=== PATIENT | male | born 1940 | race Caucasian/White ===

== ENCOUNTER 2017-12-08 06:20 | Emergency (ER) | payer MEDICARE, BC ==
[2017-12-08] MEDS ORDERED: Ketorolac 60 MG/2 ML SDV IM ONE (07:26)
[2017-12-08] MEDS ORDERED: Acetaminophen/oxyCODONE 325-5 MG Tab PO ONE (07:27)
--- NOTE | 2017-12-08 07:31 | EDM.PDOC ---
ED HPI GENERAL MEDICAL PROBLEM - General Chief Complaint: Back Pain or Injury Stated Complaint: BACK/LEG PAIN Time Seen by Provider: 12/08/17 07:27 Source of Information: Reports: Patient History Limitations: Reports: No Limitations - History of Present Illness INITIAL COMMENTS - FREE TEXT/NARRATIVE: pt had been having severe pain in his legs bilateral and in the lower back. He was actually walking with crutches this am. Onset: Other ( started about 2 weeks ago. He had a fall about 3 weeks ago and he did not think he had a injury) Duration: Hour(s):, Getting Worse Location: Reports: Back, Lower Extremity, Left, Lower Extremity, Right Associated Symptoms: Reports: No Other Symptoms Treatments WHEAT GROWER: Reports: Other (see below) Other Treatments WHEAT GROWER: unknown buttock Pain Score (Numeric/FACES): 5 - Related Data Allergies Allergy/AdvReac Type Severity Reaction Status Date / Time No Known Allergies Allergy Verified 12/08/17 06:41 Home Meds: Home Meds Tamsulosin [Tamsulosin 24 Hr] 0.4 mg PO DAILY 12/08/17 [History] Past Medical History Genitourinary History: Reports: Prostate Disorder - Infectious Disease History Infectious Disease History: Reports: Chicken Pox Social & Family History - Tobacco Use Smoking Status *Q: Never Smoker Second Hand Smoke Exposure: No - Caffeine Use Caffeine Use: Reports: Coffee - Recreational Drug Use Recreational Drug Use: No ED ROS GENERAL - Review of Systems Review Of Systems: See Below Constitutional: Reports: Weakness, Other (pain in both legs. ) HEENT: Reports: No Symptoms Respiratory: Reports: No Symptoms Cardiovascular: Reports: No Symptoms Endocrine: Reports: No Symptoms GI/Abdominal: Reports: No Symptoms : Reports: No Symptoms Musculoskeletal: Reports: Other (pain in both legs and his lower back. ) Skin: Reports: No Symptoms ED EXAM,LOWER BACK PAIN/INJURY - Physical Exam Exam: See Below Text/Narrative:: Pt arrived with pain in both legs and his lower back. He feels like his legs are weak. Exam Limited By: No Limitations General Appearance: Alert, Anxious Ears: Normal TMs Nose: Normal Inspection Throat/Mouth: Normal Inspection Head: Atraumatic Neck: Normal Inspection Respiratory/Chest: No Respiratory Distress Cardiovascular: Regular Rate, Rhythm GI/Abdominal: Soft, Non-Tender (Male) Exam: Deferred Rectal (Males) Exam: Deferred Back Exam: Other (pt is tender in the lower lumbar. He has a feeling of weakness in both legs and both legs are very painful ) Extremities: Normal Inspection Neurological: Alert, Oriented x 3 Psychiatric: Normal Affect Course - Vital Signs Last Recorded V/S: Last Vital Signs Temp 36.0 C 12/08/17 11:05 Pulse 52 L 12/08/17 11:05 Resp 15 12/08/17 11:05 BP 131/82 12/08/17 11:05 Pulse Ox 93 L 12/08/17 11:05 - Orders/Labs/Meds Labs: Laboratory Tests 12/08/17 Range/Units 07:26 Urine Color Yellow Urine Appearance Slightly cloudy Urine pH 5.0 (4.5-8.0) Ur Specific [place] 1.025 (1.008-1.030) Urine Protein Negative (NEGATIVE) mg/dL Urine Glucose (UA) Normal (NEGATIVE) mg/dL Urine Ketones Negative (NEGATIVE) mg/dL Urine Occult Blood Large (NEGATIVE) Urine Nitrite Negative (NEGAITVE) Urine Bilirubin Negative (NEGATIVE) Urine Urobilinogen 1 (NORMAL) mg/dL Ur Leukocyte Esterase Negative (NEGATIVE) Urine RBC 10-20 H (0-5) Urine WBC 0-5 (0-5) Ur Epithelial Cells Few Amorphous Sediment Not seen Urine Bacteria Few Urine Mucus Not seen Meds: Medications Discontinued Medications Generic Name Dose Route Start Last Admin Trade Name Freq PRN Reason Stop Dose Admin Ketorolac Tromethamine 60 mg 12/08/17 07:26 12/08/17 07:33 Toradol IM 12/08/17 07:27 60 mg ONETIME ONE Administration Lorazepam 1 mg 12/08/17 08:39 12/08/17 09:35 Ativan PO 12/08/17 08:40 1 mg ONETIME ONE Administration Oxycodone/Acetaminophen 1 tab 12/08/17 07:27 12/08/17 07:33 Percocet 325-5 Mg PO 12/08/17 07:28 1 tab ONETIME ONE Administration - Re-Assessments/Exams Free Text/Narrative Re-Assessment/Exam: 12/08/17 11:07 Pt had lumbar spine series which did not reveal and fractures. Pt has a severe spinal stenosis at L2-3 and at L4-5. Pt has some bulging discs 12/09/17 07:55 pt had a arterial doppler which shows some narrowing but he does have flow to his feet. Departure - Departure Time of Disposition: 11:14 Disposition: Home, Self-Care 01 Condition: Fair Clinical Impression: Spinal stenosis at L4-L5 level - Discharge Information Instructions: Spinal Stenosis, [id number] Referrals: PCP,None [Primary Care Provider] - Forms: ED Department Discharge Care Plan Goals: appt in ne[place]--[facility]--Dr Mckenzie, flexeril 10mg at hs to relax muscles, norco 5/325. Use prunes or stool softner while on the norco.
[2017-12-08] MEDS ORDERED: LORazepam 1 MG Tab PO ONE (08:39)
--- NOTE | 2017-12-08 09:05 | CR ---
Lumbar Spine 2 or 3V HISTORY: pain in lower back FINDINGS: Lumbar vertebral bodies appear intact. No compression fracture or disk space narrowing is seen. Ther e is about 4 mm of anterior subluxation at L4-L5. I cannot definitively identify pars interarticulari s defects on images obtained. Spinous processes, posterior elements, and pedicles appear intact and i n satisfactory alignment. There is hypertrophic facet arthropathy lower lumbar spine. Small anterolat eral aspects are noted greatest at L2-3. Perivertebral soft tissues appear normal. IMPRESSION: Mild degenerative and hypertrophic changes. Grade 1 anterolisthesis L4-L5. No acute lumbar spine abno rmality is identified.
--- NOTE | 2017-12-08 09:08 | US ---
VL Duplex Lwr Ext Art Comp Bi HISTORY: severe pain in both lower legs which get worse FINDINGS: Normal triphasic arterial flow seen in the common femoral artery bilaterally. Biphasic flow is seen from the proximal SFA through the posterior tibial artery of each leg. No occluded segments are identified. No increased velocities are seen. Monophasic flow seen in the dorsalis pedis artery b ilaterally. IMPRESSION: No focal stenosis or occluded segments are identified in either lower extremity. Mostly b iphasic flow seen throughout most of both lower extremities as described above.
[2017-12-08 11:06] VITALS: BP 131/82
--- NOTE | 2017-12-08 11:15 | MR ---
Lumbar Spine Comp wo Cont HISTORY: severe pain and weakness in his lower back and leg Multiplanar sequences of the lumbar spine were obtained. Comparison plain radiographs are dated 2017. FINDINGS: At L4-L5 there is approximately 3 mm of anterolisthesis. Questionable pars interarticularis defect may be present on the right. Alignment is otherwise satisfactory. No compression fractures se en. There is no marrow signal abnormality. Degenerative disc desiccation is present at all levels. Th ere is mild narrowing of the intervertebral disc at L2-L3 and L4-L5. The conus terminates at the T12- L1 level. Somewhat serpiginous appearance to the nerve roots of the cauda equina suggests possible mi ld cauda equina syndrome. L1-L2: No significant disc bulge or protrusion is identified. There is mild hypertrophic facet arthro earlene bilaterally. No central or foraminal stenosis is present at this level. L2-L3: Mild diffuse posterior bulging the disc is present. There is mild hypertrophic facet arthropat hy and mild ligament of flavum hypertrophy bilaterally. These changes cause mild central spinal steno sis. Bulging disc encroaches on the inferior aspect of the exiting nerve root foramina bilaterally. L3-L4: Diffuse posterior bulging of the disc is present. No focal protrusion is identified. There is prominent hypertrophic facet arthropathy on the right. Moderately severe facet arthropathy is present on the left. There is mild ligament hypertrophy bilaterally. These changes cause severe central spin al stenosis. There is severe stenosis in the right lateral neural recess primarily due to facet arthr opathy. Mild to moderate foraminal stenosis is present on the right at this level. L4-L5: Mild diffuse posterior bulging of the disc is present. There is fairly prominent facet arthrop athy bilaterally, right greater than left. Mild ligament hypertrophy is seen. There is prominent cent ral spinal stenosis at this level. There is stenosis of the lateral neural recess bilaterally. Very m ild foraminal stenosis is present bilaterally. L5-S1: Very mild posterior bulging the disc is present. Mild facet arthropathy is present bilaterally . There is no central or foraminal stenosis at this level. IMPRESSION: 1. 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 There is possible mild grade 1 spondylolisthesis at L4-L5 with about 3 mm anterior subluxation. 2. Bulging disc and hypertrophic changes cause severe central spinal stenosis and very severe stenosi s in the right lateral neural recess at L3-L4. 3. Bulging disc and hypertrophic changes also cause severe central spinal stenosis at L4-L5. 4. There is a mildly serpiginous appearance to the nerve roots of the cauda equina suggesting possibl e mild cauda equina syndrome. 5. Very mild foraminal stenosis is present bilaterally at L4-L5. There is mild to moderate foraminal stenosis on the right at L3-L4. Findings were discussed with Dr. Suarez in the Emergency Department.
== END 2017-12-08 12:00 | disposition home or self-care (01) ==
LOC: JP.ED 06:20
DX: M48.061 Spinal stenosis, lumbar region without neurogenic claudication (principal); Z79.899 Other long term (current) drug therapy
CPT/HCPCS: 72100; 72100-26; 72148; 72148-26; 81001; 93925-26; 93925-50; 96372; 99283; 99284-25; A9270-GY; J1885

== ENCOUNTER 2018-09-07 05:04 | Emergency (ER) | payer MEDICARE, BC ==
[2018-09-07] MEDS ORDERED: HYDROmorphone 0.5 MG/0.5 ML Syringe IVPUSH ONE (05:32)
--- NOTE | 2018-09-07 05:39 | EDM.PDOC ---
<Jayy Stuot T - Last Filed: 09/07/18 09:01> ED HPI GENERAL MEDICAL PROBLEM - General Chief Complaint: Abdominal Pain Stated Complaint: BOWELS BACKED UP Time Seen by Provider: 09/07/18 05:33 - Related Data Allergies Allergy/AdvReac Type Severity Reaction Status Date / Time No Known Allergies Allergy Verified 09/07/18 05:11 Home Meds: Home Meds Tamsulosin [Tamsulosin 24 Hr] 0.4 mg PO DAILY 12/08/17 [History] EKG INTERPRETATION EKG Date: 09/07/18 Rhythm: NSR [place]: LAD-Left [place] Deviation P-Wave: Present QRS: Normal ST-T: Normal QT: Normal Comparison: NA - No Prior EKG EKG Interpretation Comments: Poor R-wave progression. T-wave inversion in lead 3. Course - Vital Signs Last Recorded V/S: Last Vital Signs Temp 36.9 C 09/07/18 05:06 Pulse 75 09/07/18 09:24 Resp 20 09/07/18 06:20 BP 132/82 09/07/18 09:24 Pulse Ox 93 L 09/07/18 06:20 - Orders/Labs/Meds Labs: Laboratory Tests 09/07/18 09/07/18 09/07/18 Range/Units 05:36 05:36 05:36 WBC 9.5 (4.5-11.0) K/uL RBC 5.04 (4.30-5.90) M/uL Hgb 14.5 (12.0-15.0) g/dL Hct 43.2 (40.0-54.0) % MCV 86 (80-98) fL MCH 29 (27-31) pg MCHC 34 (32-36) % Plt Count 203 (150-400) K/uL Neut % (Auto) 74 H (36-66) % Lymph % (Auto) 13 L (24-44) % Wright % (Auto) 12 H (2-6) % Eos % (Auto) 0 L (2-4) % Baso % (Auto) 0 (0-1) % PT (9.5-12.0) sec INR (0.80-1.20) APTT (27.0-36.0) sec D-Dimer, Quantitative (0.0-400.0) ng/mL Sodium 136 L (140-148) mmol/L Potassium 4.4 (3.6-5.2) mmol/L Chloride 100 (100-108) mmol/L Carbon Dioxide 27 (21-32) mmol/L Anion Gap 13.4 (5.0-14.0) mmol/L BUN 10 (7-18) mg/dL Creatinine 0.8 (0.8-1.3) mg/dL Est Cr Clr Drug Dosing 78.58 mL/min Estimated GFR (MDRD) > 60 (>60) Glucose 117 H (74-106) mg/dL Calcium 9.1 (8.5-10.1) mg/dL Total Bilirubin 1.2 H (0.2-1.0) mg/dL AST 19 (15-37) U/L ALT 30 (12-78) U/L Alkaline Phosphatase 86 (46-116) U/L Troponin I (0.000-0.056) ng/mL C-Reactive Protein 9.90 H (0.0-0.3) mg/dL Total Protein 7.7 (6.4-8.2) g/dL Albumin 3.4 (3.4-5.0) g/dL Globulin 4.3 H (2.3-3.5) g/dL Albumin/Globulin Ratio 0.8 L (1.2-2.2) Urine Color Urine Appearance Urine pH (4.5-8.0) Ur Specific [place] (1.008-1.030) Urine Protein (NEGATIVE) mg/dL Urine Glucose (UA) (NEGATIVE) mg/dL Urine Ketones (NEGATIVE) mg/dL Urine Occult Blood (NEGATIVE) Urine Nitrite (NEGAITVE) Urine Bilirubin (NEGATIVE) Urine Urobilinogen (NORMAL) mg/dL Ur Leukocyte Esterase (NEGATIVE) Urine RBC (0-5) Urine WBC (0-5) Ur Epithelial Cells Amorphous Sediment Urine Bacteria Urine Mucus 09/07/18 09/07/18 09/07/18 Range/Units 05:36 05:36 06:07 WBC (4.5-11.0) K/uL RBC (4.30-5.90) M/uL Hgb (12.0-15.0) g/dL Hct (40.0-54.0) % MCV (80-98) fL MCH (27-31) pg MCHC (32-36) % Plt Count (150-400) K/uL Neut % (Auto) (36-66) % Lymph % (Auto) (24-44) % Wright % (Auto) (2-6) % Eos % (Auto) (2-4) % Baso % (Auto) (0-1) % PT 11.1 (9.5-12.0) sec INR 1.01 (0.80-1.20) APTT 29.7 (27.0-36.0) sec D-Dimer, Quantitative 3320 H (0.0-400.0) ng/mL Sodium (140-148) mmol/L Potassium (3.6-5.2) mmol/L Chloride (100-108) mmol/L Carbon Dioxide (21-32) mmol/L Anion Gap (5.0-14.0) mmol/L BUN (7-18) mg/dL Creatinine (0.8-1.3) mg/dL Est Cr Clr Drug Dosing mL/min Estimated GFR (MDRD) (>60) Glucose (74-106) mg/dL Calcium (8.5-10.1) mg/dL Total Bilirubin (0.2-1.0) mg/dL AST (15-37) U/L ALT (12-78) U/L Alkaline Phosphatase (46-116) U/L Troponin I < 0.017 (0.000-0.056) ng/mL C-Reactive Protein (0.0-0.3) mg/dL Total Protein (6.4-8.2) g/dL Albumin (3.4-5.0) g/dL Globulin (2.3-3.5) g/dL Albumin/Globulin Ratio (1.2-2.2) Urine Color Urine Appearance Urine pH (4.5-8.0) Ur Specific [place] (1.008-1.030) Urine Protein (NEGATIVE) mg/dL Urine Glucose (UA) (NEGATIVE) mg/dL Urine Ketones (NEGATIVE) mg/dL Urine Occult Blood (NEGATIVE) Urine Nitrite (NEGAITVE) Urine Bilirubin (NEGATIVE) Urine Urobilinogen (NORMAL) mg/dL Ur Leukocyte Esterase (NEGATIVE) Urine RBC (0-5) Urine WBC (0-5) Ur Epithelial Cells Amorphous Sediment Urine Bacteria Urine Mucus 06/13/19 Range/Units 07:56 WBC (4.5-11.0) K/uL RBC (4.30-5.90) M/uL Hgb (12.0-15.0) g/dL Hct (40.0-54.0) % MCV (80-98) fL MCH (27-31) pg MCHC (32-36) % Plt Count (150-400) K/uL Neut % (Auto) (36-66) % Lymph % (Auto) (24-44) % Wright % (Auto) (2-6) % Eos % (Auto) (2-4) % Baso % (Auto) (0-1) % PT (9.5-12.0) sec INR (0.80-1.20) APTT (27.0-36.0) sec D-Dimer, Quantitative (0.0-400.0) ng/mL Sodium (140-148) mmol/L Potassium (3.6-5.2) mmol/L Chloride (100-108) mmol/L Carbon Dioxide (21-32) mmol/L Anion Gap (5.0-14.0) mmol/L BUN (7-18) mg/dL Creatinine (0.8-1.3) mg/dL Est Cr Clr Drug Dosing mL/min Estimated GFR (MDRD) (>60) Glucose (74-106) mg/dL Calcium (8.5-10.1) mg/dL Total Bilirubin (0.2-1.0) mg/dL AST (15-37) U/L ALT (12-78) U/L Alkaline Phosphatase (46-116) U/L Troponin I (0.000-0.056) ng/mL C-Reactive Protein (0.0-0.3) mg/dL Total Protein (6.4-8.2) g/dL Albumin (3.4-5.0) g/dL Globulin (2.3-3.5) g/dL Albumin/Globulin Ratio (1.2-2.2) Urine Color Yellow Urine Appearance Clear Urine pH 7.0 (4.5-8.0) Ur Specific [place] 1.005 L (1.008-1.030) Urine Protein Negative (NEGATIVE) mg/dL Urine Glucose (UA) Normal (NEGATIVE) mg/dL Urine Ketones 15 H (NEGATIVE) mg/dL Urine Occult Blood Negative (NEGATIVE) Urine Nitrite Negative (NEGAITVE) Urine Bilirubin Negative (NEGATIVE) Urine Urobilinogen Normal (NORMAL) mg/dL Ur Leukocyte Esterase Negative (NEGATIVE) Urine RBC 0-5 (0-5) Urine WBC Not seen (0-5) Ur Epithelial Cells Not seen Amorphous Sediment Rare Urine Bacteria Not seen Urine Mucus Not seen Meds: Medications Discontinued Medications Generic Name Dose Route Start Last Admin Trade Name Freq PRN Reason Stop Dose Admin Hydromorphone HCl 0.5 mg 09/07/18 05:32 09/07/18 05:40 Dilaudid IVPUSH 09/07/18 05:33 0.5 mg ONETIME ONE Administration Sodium Chloride 1,000 mls @ 150 mls/hr 09/07/18 05:45 09/07/18 05:40 Normal Saline IV 150 mls/hr ASDIRECTED BUDDY Administration Sodium Chloride 1,000 mls @ 999 mls/hr 09/07/18 06:15 09/07/18 06:13 Normal Saline IV 999 mls/hr ASDIRECTED BUDDY Administration Sodium Chloride 100 mls @ 4 mls/sec 09/07/18 06:16 09/07/18 06:33 Normal Saline IV 09/07/18 06:17 4 mls/sec ASDIRECTED STA Administration Heparin Sodium/Dextrose 25,000 units in 500 mls @ 20 mls/hr 09/07/18 08:15 08:51 Heparin 25,000 Units In D5w 500 Ml IV 1,300 units/hr TITRATE BUDDY 26 mls/hr Administration Protocol 1,000 UNITS/HR Iopamidol 100 ml 09/07/18 06:16 09/07/18 06:33 Isovue-370 (76%) IV 09/07/18 06:17 100 ml . DIRECTED STA Administration - Re-Assessments/Exams Free Text/Narrative Re-Assessment/Exam: Assumed care of patient from Dr. Suarez [place] [address] imaging has been completed but reports are pending. Verbal report of CT images at 0733 shows significant bilateral pulmonary emboli with post-embolic infarction changes on right side. There is also thrombus in the IVC. 09/07/18 07:35 09/07/18 08:14 The patient was seen by Dr. Juan David Harper. Dr. Harper will be gone through the weekend and reviewed the patient's case with Dr. Allison, the hospitalist client relationship executive. Heparin will be initiated per venous thromboembolism protocol. 09/07/18 09:[address] findings with Dr. Allison. Based on the extensive clot found on imaging including that in the IVC, he feels the patient should be transferred to a facility with interventional radiology capability to place of filter or possibly attempt clot lysis. The patient is are discussing where they would like to be transferred. 09/07/18 09:38 Patient and his reviewed the situation with an acquaintance of theirs who is a retired physician. Based on discussions among the group, they prefer to be transferred to [facility] in [place]. I discussed the patient's case with [facility] staff. His radiology images will be transmitted from here to there are reviewed by the staff. 09/07/18 10:[address] [facility] hospitalist, Dr. Maldonado, and interventional radiology, Dr. Chowdary, staff. They accept the patient in transfer by are not sure what specific intervention they will be able to do until the patient can be evaluated in person. He'll be transported by ALS ambulance. Departure - Departure Time of Disposition: 07:48 Disposition: DC/Tfer to Acute Hospital 02 Condition: Serious Clinical Impression: Pulmonary embolism and infarction, Thrombus - Discharge Information *PRESCRIPTION DRUG MONITORING PROGRAM REVIEWED*: Not Applicable *COPY OF PRESCRIPTION DRUG MONITORING REPORT IN PATIENT RUMA: Not Applicable Referrals: PCP,None [Primary Care Provider] - Forms: Interfacility Transfer EMTALA - Problem List Review Problem List Initiated/Reviewed/Updated: Yes <Madelyn Suarez - Last Filed: 09/07/18 18:55> ED HPI GENERAL MEDICAL PROBLEM - General Source of Information: Reports: Patient History Limitations: Reports: No Limitations - History of Present Illness INITIAL COMMENTS - FREE TEXT/NARRATIVE: pt is very uncomfortable in his rt chest. He has a lower o2 sat. He can,t lie flat because he is so uncomfortable. He hurts alot when he takes a deep breath. Onset: Gradual, Other ( this is definitely worse tonight but this has been going on for 2 days. He has not been having good bms. ) Duration: Hour(s): Location: Reports: Chest, Abdomen Associated Symptoms: Reports: Chest Pain, Shortness of Breath Abdomen Pain Score (Numeric/FACES): 7 Past Medical History HEENT History: Reports: Impaired Vision Cardiovascular History: Reports: None Respiratory History: Reports: None Gastrointestinal History: Reports: None Genitourinary History: Reports: Prostate Disorder Musculoskeletal History: Reports: Other (See Below) Other Musculoskeletal History: left knee pain Neurological History: Reports: None Psychiatric History: Reports: None Endocrine/Metabolic History: Reports: None Hematologic History: Reports: None Immunologic History: Reports: None Oncologic (Cancer) History: Reports: None Dermatologic History: Reports: None - Infectious Disease History Infectious Disease History: Reports: Chicken Pox - Past Surgical History HEENT Surgical History: Reports: None Male Surgical History: Reports: None Musculoskeletal Surgical History: Reports: None Social & Family History - Family History Family Medical History: Noncontributory - Tobacco Use Smoking Status *Q: Never Smoker - Caffeine Use Caffeine Use: Reports: None - Recreational Drug Use Recreational Drug Use: No ED ROS GENERAL - Review of Systems Review Of Systems: See Below Constitutional: Reports: No Symptoms HEENT: Reports: No Symptoms Respiratory: Reports: Shortness of Breath, Pleuritic Chest Pain Cardiovascular: Reports: Chest Pain Endocrine: Reports: No Symptoms GI/Abdominal: Reports: Other ( some pain in the upper abdoman by the rt diaphram ) : Reports: No Symptoms Musculoskeletal: Reports: No Symptoms Skin: Reports: No Symptoms ED EXAM, GI/ABD - Physical Exam Exam: See Below Text/Narrative:: pt has talked to Dr Harper who thought he was very constipated. He did do a US of the abdoman which was neg. He is feeling very sob and is having pain with deep breathing. Exam Limited By: No Limitations General Appearance: Alert, Moderate Distress Ears: Normal TMs Nose: Normal Inspection Throat/Mouth: Normal Inspection Head: Atraumatic Neck: Normal Inspection Respiratory/Chest: Respiratory Distress, Splinting Cardiovascular: Regular Rate, Rhythm GI/Abdominal Exam: Soft, Other (mild rt upper abdomanal tenderness) (Male) Exam: Deferred Rectal (Males) Exam: Deferred Back Exam: Normal Inspection Extremities: Normal Inspection Neurological: Alert, Oriented, Normal Cognition Psychiatric: Anxious Course - Orders/Labs/Meds Labs: Laboratory Tests 09/07/18 09/07/18 09/07/18 Range/Units 05:36 05:36 05:36 WBC 9.5 (4.5-11.0) K/uL RBC 5.04 (4.30-5.90) M/uL Hgb 14.5 (12.0-15.0) g/dL Hct 43.2 (40.0-54.0) % MCV 86 (80-98) fL MCH 29 (27-31) pg MCHC 34 (32-36) % Plt Count 203 (150-400) K/uL Neut % (Auto) 74 H (36-66) % Lymph % (Auto) 13 L (24-44) % Wright % (Auto) 12 H (2-6) % Eos % (Auto) 0 L (2-4) % Baso % (Auto) 0 (0-1) % PT (9.5-12.0) sec INR (0.80-1.20) APTT (27.0-36.0) sec D-Dimer, Quantitative (0.0-400.0) ng/mL Sodium 136 L (140-148) mmol/L Potassium 4.4 (3.6-5.2) mmol/L Chloride 100 (100-108) mmol/L Carbon Dioxide 27 (21-32) mmol/L Anion Gap 13.4 (5.0-14.0) mmol/L BUN 10 (7-18) mg/dL Creatinine 0.8 (0.8-1.3) mg/dL Est Cr Clr Drug Dosing 78.58 mL/min Estimated GFR (MDRD) > 60 (>60) Glucose 117 H (74-106) mg/dL Calcium 9.1 (8.5-10.1) mg/dL Total Bilirubin 1.2 H (0.2-1.0) mg/dL AST 19 (15-37) U/L ALT 30 (12-78) U/L Alkaline Phosphatase 86 (46-116) U/L Troponin I (0.000-0.056) ng/mL C-Reactive Protein 9.90 H (0.0-0.3) mg/dL Total Protein 7.7 (6.4-8.2) g/dL Albumin 3.4 (3.4-5.0) g/dL Globulin 4.3 H (2.3-3.5) g/dL Albumin/Globulin Ratio 0.8 L (1.2-2.2) Urine Color Urine Appearance Urine pH (4.5-8.0) Ur Specific [place] (1.008-1.030) Urine Protein (NEGATIVE) mg/dL Urine Glucose (UA) (NEGATIVE) mg/dL Urine Ketones (NEGATIVE) mg/dL Urine Occult Blood (NEGATIVE) Urine Nitrite (NEGAITVE) Urine Bilirubin (NEGATIVE) Urine Urobilinogen (NORMAL) mg/dL Ur Leukocyte Esterase (NEGATIVE) Urine RBC (0-5) Urine WBC (0-5) Ur Epithelial Cells Amorphous Sediment Urine Bacteria Urine Mucus 09/07/18 09/07/18 09/07/18 Range/Units 05:36 05:36 06:07 WBC (4.5-11.0) K/uL RBC (4.30-5.90) M/uL Hgb (12.0-15.0) g/dL Hct (40.0-54.0) % MCV (80-98) fL MCH (27-31) pg MCHC (32-36) % Plt Count (150-400) K/uL Neut % (Auto) (36-66) % Lymph % (Auto) (24-44) % [place] % (Auto) (2-6) % Eos % (Auto) (2-4) % Baso % (Auto) (0-1) % PT 11.1 (9.5-12.0) sec INR 1.01 (0.80-1.20) APTT 29.7 (27.0-36.0) sec D-Dimer, Quantitative 3320 H (0.0-400.0) ng/mL Sodium (140-148) mmol/L Potassium (3.6-5.2) mmol/L Chloride (100-108) mmol/L Carbon Dioxide (21-32) mmol/L Anion Gap (5.0-14.0) mmol/L BUN (7-18) mg/dL Creatinine (0.8-1.3) mg/dL Est Cr Clr Drug Dosing mL/min Estimated GFR (MDRD) (>60) Glucose (74-106) mg/dL Calcium (8.5-10.1) mg/dL Total Bilirubin (0.2-1.0) mg/dL AST (15-37) U/L ALT (12-78) U/L Alkaline Phosphatase (46-116) U/L Troponin I < 0.017 (0.000-0.056) ng/mL C-Reactive Protein (0.0-0.3) mg/dL Total Protein (6.4-8.2) g/dL Albumin (3.4-5.0) g/dL Globulin (2.3-3.5) g/dL Albumin/Globulin Ratio (1.2-2.2) Urine Color Urine Appearance Urine pH (4.5-8.0) Ur Specific [place] (1.008-1.030) Urine Protein (NEGATIVE) mg/dL Urine Glucose (UA) (NEGATIVE) mg/dL Urine Ketones (NEGATIVE) mg/dL Urine Occult Blood (NEGATIVE) Urine Nitrite (NEGAITVE) Urine Bilirubin (NEGATIVE) Urine Urobilinogen (NORMAL) mg/dL Ur Leukocyte Esterase (NEGATIVE) Urine RBC (0-5) Urine WBC (0-5) Ur Epithelial Cells Amorphous Sediment Urine Bacteria Urine Mucus 09/07/18 Range/Units 07:56 WBC (4.5-11.0) K/uL RBC (4.30-5.90) M/uL Hgb (12.0-15.0) g/dL Hct (40.0-54.0) % MCV (80-98) fL MCH (27-31) pg MCHC (32-36) % Plt Count (150-400) K/uL Neut % (Auto) (36-66) % Lymph % (Auto) (24-44) % Wright % (Auto) (2-6) % Eos % (Auto) (2-4) % Baso % (Auto) (0-1) % PT (9.5-12.0) sec INR (0.80-1.20) APTT (27.0-36.0) sec D-Dimer, Quantitative (0.0-400.0) ng/mL Sodium (140-148) mmol/L Potassium (3.6-5.2) mmol/L Chloride (100-108) mmol/L Carbon Dioxide (21-32) mmol/L Anion Gap (5.0-14.0) mmol/L BUN (7-18) mg/dL Creatinine (0.8-1.3) mg/dL Est Cr Clr Drug Dosing mL/min Estimated GFR (MDRD) (>60) Glucose (74-106) mg/dL Calcium (8.5-10.1) mg/dL Total Bilirubin (0.2-1.0) mg/dL AST (15-37) U/L ALT (12-78) U/L Alkaline Phosphatase (46-116) U/L Troponin I (0.000-0.056) ng/mL C-Reactive Protein (0.0-0.3) mg/dL Total Protein (6.4-8.2) g/dL Albumin (3.4-5.0) g/dL Globulin (2.3-3.5) g/dL Albumin/Globulin Ratio (1.2-2.2) Urine Color Yellow Urine Appearance Clear Urine pH 7.0 (4.5-8.0) Ur Specific [place] 1.005 L (1.008-1.030) Urine Protein Negative (NEGATIVE) mg/dL Urine Glucose (UA) Normal (NEGATIVE) mg/dL Urine Ketones 15 H (NEGATIVE) mg/dL Urine Occult Blood Negative (NEGATIVE) Urine Nitrite Negative (NEGAITVE) Urine Bilirubin Negative (NEGATIVE) Urine Urobilinogen Normal (NORMAL) mg/dL Ur Leukocyte Esterase Negative (NEGATIVE) Urine RBC 0-5 (0-5) Urine WBC Not seen (0-5) Ur Epithelial Cells Not seen Amorphous Sediment Rare Urine Bacteria Not seen Urine Mucus Not seen - Re-Assessments/Exams Free Text/Narrative Re-Assessment/Exam: 09/07/18 06:09 pt has a very definite infiltrate in the rt lower lobe. He has a very high ddimer. He remains low with O@ sats and hurting alot with deep breathing. Pt had a cat scan of the abdomanpelvis which revealed a large thrombus in the inferior vena cava and in the left iliac vessel. He had a angio of his chest which showed multiple pulmonary emboli with infarction in the lower rt lung. 09/07/18 18:53
[2018-09-07] MEDS ORDERED: Sodium Chloride 0.9% 1,000 ML IV SCH ×2 (05:45→06:15)
[2018-09-07] MEDS ORDERED: Sodium Chloride 0.9% 100 ML IV STA (06:16)
[2018-09-07] MEDS ORDERED: Iopamidol 755 Mg/ML 100 ML Bottle IV STA (06:16)
--- NOTE | 2018-09-07 06:16 | CRLCR ---
INDICATION: Right-sided chest pain TECHNIQUE: Chest 1 view COMPARISON: None FINDINGS: Cardiovascular and mediastinum: There is cardiomegaly. Normal pulmonary vasculature. Lungs and pleural spaces: Right basilar atelectasis or infiltrate is present. Remainder of the lungs and pleural spaces are clear. No pneumothorax. Bones and soft tissues: No significant findings. IMPRESSION: Right lower lobe pneumonia and/or atelectasis. Dictated by Duglas Reeves MD @ 09/07/2018 6:14:56 AM Dictated by: Duglas Reeves MD @ 09/07/2018 06:15:01 (Electronically Signed)
--- NOTE | 2018-09-07 07:38 | CRLCT ---
INDICATION: Right-sided chest and abdomen pain. TECHNIQUE: CT chest PE was acquired with 100 cc Isovue 370 IV contrast. COMPARISON: None. FINDINGS: Heart and vasculature: There is a significant burden of multiple large bilateral pulmonary emboli. No evidence of right heart strain. There is moderate cardiomegaly.Great vessels are normal in caliber. Coronary artery atherosclerosis is present. Lungs and pleural: Consolidation is present in the right lower lobe and to a lesser extent right middle lobe. Trace right pleural effusion. Lymph nodes/mediastinum: No mediastinal, hilar, or axillary adenopathy. Thyroid gland is normal. Chest wall: No masses. Upper abdomen: Normal. Bones: Unremarkable for age. IMPRESSION: Significant burden of large bilateral pulmonary emboli with evidence of post embolic infarct and/or atelectasis in the right lower lobe and to a lesser extent right middle lobe. No sign of right heart strain. Results discussed with Dr. Stout at 0735 hours. Dictated by Duglas Reeves MD @ 09/07/2018 7:36:04 AM Please note that all CT scans at this facility use dose modulation, iterative reconstruction, and/or weight-based dosing when appropriate to reduce radiation dose to as low as reasonably achievable. Dictated by: Duglas Reeves MD @ 09/07/2018 07:36:08 (Electronically Signed)
--- NOTE | 2018-09-07 07:45 | CRLCT ---
INDICATION: Right-sided chest and abdomen pain. TECHNIQUE: CT abdomen and pelvis acquired with 100 cc Isovue 370 IV contrast. COMPARISON: None. FINDINGS: Lower chest: Findings in the chest are detailed on the separate CT chest report. Pulmonary emboli are present. Liver: Unremarkable. Normal in size and attenuation. No masses. Gallbladder and bile ducts: Unremarkable. No stones or inflammation. No biliary dilatation. Pancreas: Unremarkable. No mass or inflammation. Spleen: Unremarkable. Normal in size. No masses. Adrenal glands: Unremarkable. No nodules. Kidneys: Unremarkable. No masses, stones, or hydronephrosis. GI tract: Unremarkable. Normal in caliber. No sign of mass or inflammation. Normal appendix. Vasculature: A large thrombus is present in the inferior vena cava and left common iliac vein. Mesenteric arteries are patent. Lymph nodes: No lymphadenopathy. Omentum/Peritoneum/Abdominal Wall: Unremarkable. No sign of mass or infiltration. No free air or significant free fluid. Pelvis: Marked enlargement of the prostate gland. Bones: Unremarkable for age. IMPRESSION: 1. Large thrombus is in the IVC and left common iliac vein. 2. Marked prostate gland enlargement. 3. No other acute or significant finding. Please note that all CT scans at this facility use dose modulation, iterative reconstruction, and/or weight-based dosing when appropriate to reduce radiation dose to as low as reasonably achievable. Dictated by Duglas Reeves MD @ Sep 07 2018 7:36AM Signed by Dr. Duglas Reeves @ Sep 07 2018 7:43AM
[2018-09-07] MEDS ORDERED: Heparin Sodium/D5W 25,000 UNITS/500 ML BAG IV SCH (08:15)
--- NOTE | 2018-09-07 09:18 | PCM.SN ---
- Free Text/Narrative Note: Mr. Henderson is a 78-year-old gentleman who I've been asked to see and admit by Dr. Harper through the emergency department. He has had pleuritic pain in the right chest and shortness of breath. Symptoms worsened during the survey engineer hours and he presented to the emergency department for further evaluation. CT scan of the chest shows evidence of bilateral pulmonary emboli and pulmonary infarction of the right lung. In addition there is clot noted in the inferior vena cava. Because of the inferior vena cava thrombus I believe that he should be transferred to a tertiary care center for further subspecialty evaluation and management. I discussed this with Dr. Stout who will arrange transfer.
[2018-09-07 09:43] VITALS: BP 132/82
== END 2018-09-07 12:35 ==
LOC: JP.ED 05:04
DX: I26.99 Other pulmonary embolism without acute cor pulmonale (principal); I82.220 Acute embolism and thrombosis of inferior vena cava; I82.422 Acute embolism and thrombosis of left iliac vein
CPT/HCPCS: 36415; 71045; 71275; 74177; 80053; 81001; 84484; 85025; 85379; 85610; 85730; 86140; 96361; 96365; 96366; 96375; 99285; J1170; J1644; J7030; Q9967

== ENCOUNTER 2019-06-15 08:50 | Day surgery (SDC) | payer MEDICARE, BC ==
[2019-06-15] MEDS ORDERED: Dextrose 5%-Lactated Ringers 1,000 ML IV SCH (09:15)
[2019-06-15] MEDS ORDERED: Propofol 200 MG/20 ML SDV ONE ×2 (09:28→11:13)
[2019-06-15] MEDS ORDERED: fentaNYL 100 MCG/2 ML SDV ONE (09:44)
[2019-06-15] MEDS ORDERED: Midazolam 1 MG/ML 2 ML SDV ONE (10:33)
[2019-06-15 13:32] VITALS: BP 128/79; PULSE 56
--- NOTE | 2019-06-18 13:15 | OR ---
DATE OF PROCEDURE: 06/15/2019 SURGEON: Zachary Rutherford MD PREOPERATIVE DIAGNOSIS: History of colon polyps. POSTOPERATIVE DIAGNOSIS: Single polyp in mid-sigmoid colon. OPERATIVE PROCEDURE: Flexible colonoscopy with polypectomy by snare technique. ANESTHESIA: IV sedation. INDICATION FOR PROCEDURE: This is a 79-year-old presenting for followup colonoscopy. The plan is to proceed with a colonoscopy with biopsies and/or polypectomy as indicated. Potential risks of the procedure including bleeding and perforation were discussed, and the patient wishes to proceed. DETAILS OF PROCEDURE: The patient was taken to the operating room and placed in a left lateral decubitus position. IV sedation was administered, after which the initial digital rectal examination was unremarkable. The scope was then passed to the level of the cecum. The prep was fairly good, but there was some liquid stool present, which might have obscured small areas of polypoid disease. The patient was noted to have no diverticula or areas of colitis. There was a single polyp noted 20 cm from the dentate line. This was removed by snare technique in 2 portions. Good hemostasis was noted. The procedure then concluded. The patient was taken to the recovery room in satisfactory condition. Assuming this is an adenomatous polyp, the next colonoscopy should be scheduled in 2 years. Zachary Rutherford MD /[id number]
== END 2019-06-15 13:15 | disposition home or self-care (01) ==
LOC: JP.SDS 08:50
PROVIDERS: ATTEND Surgery
DX: Z12.11 Encounter for screening for malignant neoplasm of colon (principal); D12.6 Benign neoplasm of colon, unspecified; Z86.010 Personal history of colon polyps
CPT/HCPCS: 45385; J2250; J2704; J3010; J7121; 88305

== ENCOUNTER 2020-04-19 15:31 | Emergency (ER) | payer MEDICARE, BC ==
[2020-04-19 16:41] VITALS: BP 144/87; PULSE 61
--- NOTE | 2020-04-19 16:46 | EDM.PDOC ---
ED HPI GENERAL MEDICAL PROBLEM - General Chief Complaint: General Stated Complaint: FELL ON ICE Time Seen by Provider: 04/19/20 16:15 Source of Information: Reports: Patient, Old Records, RN History Limitations: Reports: No Limitations - History of Present Illness INITIAL COMMENTS - FREE TEXT/NARRATIVE: 80-year-old pan was on the barn when he slipped on some ice and fell vikas kwards hitting his head. He was wearing a insulated hat. He apparently lost consciousness for a brief period of time and was assisted up by his son. The son and the noted that he seemed to have lack of memory of the event and memory about other recent things. This improved with time he continues to improve however according to the to the point where is now normal during his exam in the emergency department. 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 He continues to farm and function normally. He has no specific complaints during my exam. Onset: Today - Related Data Allergies Allergy/AdvReac Type Severity Reaction Status Date / Time No Known Allergies Allergy Verified 04/19/20 15:44 Home Meds: Home Meds Tamsulosin [Tamsulosin 24 Hr] 0.4 mg PO DAILY 12/08/17 [History] Apixaban [Eliquis] 5 mg PO BID 06/12/19 [History] Oxybutynin 5 mg PO DAILY 06/12/19 [History] Past Medical History HEENT History: Reports: Impaired Vision Cardiovascular History: Reports: Heart Murmur Respiratory History: Reports: PE Gastrointestinal History: Reports: Colon Polyp Genitourinary History: Reports: Prostate Disorder Musculoskeletal History: Reports: Fracture Other Musculoskeletal History: left knee pain Neurological History: Reports: None Psychiatric History: Reports: None Endocrine/Metabolic History: Reports: None Hematologic History: Reports: Anticoagulation Therapy Immunologic History: Reports: None Oncologic (Cancer) History: Reports: None Dermatologic History: Reports: None - Infectious Disease History Infectious Disease History: Reports: Chicken Pox, Measles, Mumps - Past Surgical History Head Surgeries/Procedures: Reports: None HEENT Surgical History: Reports: Tonsillectomy Cardiovascular Surgical History: Reports: None Respiratory Surgical History: Reports: None GI Surgical History: Reports: Colonoscopy Male Surgical History: Reports: None Endocrine Surgical History: Reports: None Neurological Surgical History: Reports: Lumbar Spine Musculoskeletal Surgical History: Reports: None Dermatological Surgical History: Reports: None Social & Family History - Family History Family Medical History: No Pertinent Family History - Tobacco Use Tobacco Use Status *Q: Never Tobacco User Second Hand Smoke Exposure: No - Caffeine Use Caffeine Use: Reports: Coffee - Recreational Drug Use Recreational Drug Use: No ED ROS GENERAL - Review of Systems Review Of Systems: See Below Constitutional: Reports: No Symptoms HEENT: Reports: No Symptoms (10 systems are reviewed and there is no system complaints in any of the 10 at the moment.) ED EXAM, GENERAL - Physical Exam Exam: See Below Free Text/Narrative:: Alert cooperative 80-year-old male lying on the gurney does not appear to be in any distress responding to my questions and appearing normal during the exam. HEENT shows eyes ears nose and throat appear to be normal. There is no tenderness or evidence of injury about the scalp or skull on palpation. Tongue is midline no facial droop. Feel the vision is entirely normal Neck is supple normal range of motion and nontender Chest is clear with a regular rate and rhythm with no abnormal sounds no pain on compression Abdomen is soft active bowel sounds and nontender without mass Pelvis and extremities are normal with normal range of motion and no deformities back exam is negative Skin exam is normal without rash or edema Neurologic is physiologic DTR and tone he moves about the room and can walk about and follow commands without a problem. [id number] is negative. He can stand to walk on his toes. Exam Limited By: No Limitations General Appearance: Alert, WD/WN, No Apparent Distress Course - Vital Signs Text/Narrative:: Because of the Eliquis and the altered mental status for period of time now improved, CAT scan of the head will be performed. 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 He is discharged to follow his physician return here as necessary try to avoid falling down Last Recorded V/S: Last Vital Signs Temp 35.6 C L 04/19/20 15:45 Pulse 60 04/19/20 15:45 Resp 16 04/19/20 15:45 BP 152/79 H 04/19/20 15:45 Pulse Ox 94 L 04/19/20 15:45 - Orders/Labs/Meds Orders: Active Orders 24 hr Category Date Time Status Head wo Cont [CT] Stat Exams 04/19/20 16:26 Ordered Departure - Departure Time of Disposition: 17:30 Disposition: Home, Self-Care 01 Condition: Good Clinical Impression: Head injury due to trauma - Discharge Information Referrals: Dima Camilo MD [Primary Care Provider] - Sepsis Event Note (ED) - Evaluation Sepsis Screening Result: No Definite Risk - Focused Exam Vital Signs: Vital Signs Temp Pulse Resp BP Pulse Ox 04/19/20 15:45 35.6 C L 60 16 152/79 H 94 L 04/19/20 15:43 35.6 C L 60 16 152/79 H 94 L - My Orders Last 24 Hours: My Active Orders 04/19/20 16:26 Head wo Cont [CT] Stat - Assessment/Plan Last 24 Hours: My Active Orders 04/19/20 16:26 Head wo Cont [CT] Stat
--- NOTE | 2020-04-19 17:03 | CRLCT ---
indication: Fall. On Eliquis. Technique: Multiple contiguous axial images were obtained from the skullbase to vertex without intravenous contrast enhancement. Please note that all CT scans at this facility use dose modulation, iterative reconstruction, and/or weight-based dosing when appropriate to reduce radiation dose to as low as reasonably achievable. Comparison: None Findings: The ventricles are enlarged consistent with the sizes sulci. The basal cisterns are widely patent. No intra-axial or extra-axial hemorrhage is identified. No mass, mass effect or midline shift is seen. The bony calvarium is intact. The visualized paranasal sinuses and mastoid air cells are clear. Impression: No acute intracranial process. Mild diffuse volume loss. Please note that all CT scans at this facility use dose modulation, iterative reconstruction, and/or weight-based dosing when appropriate to reduce radiation dose to as low as reasonably achievable. Dictated by Barbie Loya MD @ Apr 19 2020 4:56PM Signed by Dr. Barbie Loya @ Apr 19 2020 5:02PM
== END 2020-04-19 17:37 | disposition home or self-care (01) ==
LOC: JP.ED 15:31
DX: S09.90XA Unspecified injury of head, initial encounter (principal); N42.9 Disorder of prostate, unspecified; Z86.711 Personal history of pulmonary embolism; Z79.01 Long term (current) use of anticoagulants; Z79.899 Other long term (current) drug therapy; W00.0XXA Fall on same level due to ice and snow, initial encounter
CPT/HCPCS: 70450; 99283; 99283-25

== ENCOUNTER 2021-06-22 06:39 | Day surgery (SDC) | payer MEDICARE, BC ==
[2021-06-22] MEDS ORDERED: fentaNYL 100 MCG/2 ML SDV ONE (07:12)
[2021-06-22] MEDS ORDERED: Propofol 200 MG/20 ML SDV ONE ×2 (07:12→09:34)
[2021-06-22] MEDS ORDERED: Dextrose 5%-Lactated Ringers 1,000 ML IV SCH (08:00)
[2021-06-22 10:47] VITALS: BP 129/86; PULSE 60
== END 2021-06-22 10:52 | disposition home or self-care (01) ==
LOC: JP.SDS 06:39
PROVIDERS: ATTEND Surgery
DX: Z12.11 Encounter for screening for malignant neoplasm of colon (principal); K64.9 Unspecified hemorrhoids; Z98.890 Other specified postprocedural states; Z85.038 Personal history of other malignant neoplasm of large intestine; Z86.711 Personal history of pulmonary embolism; Z87.891 Personal history of nicotine dependence
CPT/HCPCS: J2704; J3010; J7121

== ENCOUNTER 2022-07-11 05:15 | Emergency (ER) | payer MEDICARE, BC ==
[2022-07-11 05:31] VITALS: BP 94/62; PULSE 66
[2022-07-11] MEDS ORDERED: Alum Hydrox/Mag Hydrox/Simeth 15 ML, Lidocaine 2% 15 ML PO ONE ×2 (06:40)
[2022-07-11 06:42] LABS: CORONAVIRUS COVID-19 NAA NEGATIVE (NEGATIVE)
[2022-07-11] MEDS ORDERED: Lidocaine 2% Viscous Solution 15 ML UD ONE (06:43)
== END 2022-07-11 07:18 | disposition home or self-care (01) ==
LOC: JP.ED 05:15
DX: J40 Bronchitis, not specified as acute or chronic (principal); J02.9 Acute pharyngitis, unspecified; Z79.82 Long term (current) use of aspirin; Z79.01 Long term (current) use of anticoagulants; Z86.718 Personal history of other venous thrombosis and embolism; Z86.711 Personal history of pulmonary embolism; Z20.822 Contact with and (suspected) exposure to COVID-19
CPT/HCPCS: 0241U; 36415; 71046; 80048; 85025; 86140; 87081; 87880; 99283; A9270

== ENCOUNTER 2022-07-20 14:49 | Emergency (ER) | payer MEDICARE, BC ==
[2022-07-20 17:33] VITALS: BP 121/76; PULSE 66
== END 2022-07-20 17:30 | disposition home or self-care (01) ==
LOC: JP.ED 14:49
DX: K59.00 Constipation, unspecified (principal); E86.0 Dehydration; Z87.891 Personal history of nicotine dependence; Z86.16 Personal history of COVID-19; Z79.01 Long term (current) use of anticoagulants; Z79.82 Long term (current) use of aspirin; Z79.899 Other long term (current) drug therapy
CPT/HCPCS: 81001; 99283; 99284

== ENCOUNTER 2023-08-31 12:13 | Emergency (ER) | payer MEDICARE, BC ==
[2023-08-31 12:44] LABS: BASOPHILS PERCENT AUTO 0.4 % (0.1-1.3); EOSINOPHILS ABSOLUTE AUTO 0.15 K/uL (0.00-0.40); EOSINOPHILS PERCENT AUTO 2.7 % (0.0-5.4); HEMATOCRIT 38.8 % (38.4-49.7); HEMOGLOBIN 13.3 g/dL (12.9-16.9); IMMATURE GRAN PERCENT AUTO 0.2 % (0.0-0.7); LYMPHOCYTES ABSOLUTE AUTO 1.28 K/uL (0.8-3.3); LYMPHOCYTES PERCENT AUTO 23.2 % (11.4-47.7); MEAN CORPUSCULAR HEMOGLOBIN 29.5 pg (31.6-35.5); MEAN CORPUSCULAR HGB CONC 34.3 g/dL (31.6-35.5); MONOCYTES PERCENT AUTO 10.9 % (3.3-12.6); NEUTROPHILS ABSOLUTE AUTO 3.46 K/uL (1.0-7.6); NEUTROPHILS PERCENT AUTO 62.6 % (40.0-78.1); PLATELET COUNT,PLT 112 K/uL (130-375); RED BLOOD CELL COUNT 4.51 M/uL (4.14-5.76); WHITE BLOOD CELL COUNT,WBC 5.5 K/uL (3.2-11.0)
[2023-08-31 12:50] LABS: BASOPHILS ABSOLUTE AUTO 0.02 K/uL (0.00-0.10); IMMATURE GRAN ABSOLUTE AUTO 0.01 K/uL (0.00-0.23)
[2023-08-31 13:05] LABS: ALANINE AMINOTRANSFERASE,ALT 46 U/L (12-78); ALBUMIN 3.6 g/dL (3.4-5.0); ALKALINE PHOSPHATASE 84 U/L (46-116); ANION GAP 11.2 mmol/L (5.0-14.0); ASPARTATE AMNIOTRANSFERASE,AST 29 U/L (15-37); BILIRUBIN TOTAL 1.3 mg/dL (0.2-1.0); BLOOD UREA NITROGEN,BUN 16 mg/dL (7-18); CALCIUM 9.2 mg/dL (8.5-10.1); CARBON DIOXIDE,CO2 25 mmol/L (21-32); CHLORIDE,CL 106 mmol/L (100-108); CREATININE 0.9 mg/dL (0.8-1.3); EST CRCL DRUG DOSING (CG) 65.22 mL/min; ESTIMATED GFR 85 mL/min (>60); GLUCOSE RANDOM 96 mg/dL (74-106); POTASSIUM,K 4.2 mmol/L (3.6-5.2); PROTEIN TOTAL,TP 7.4 g/dL (6.4-8.2); SODIUM,NA 138 mmol/L (140-148)
[2023-08-31] MEDS: Sodium Chloride 0.9% 1,000 ML IV SCH (13:25)
[2023-08-31 13:26] LABS: APPEARANCE,URINE CLEAR (CLEAR); BILIRUBIN,URINE NEGATIVE (NEGATIVE); COLOR,URINE YELLOW (YELLOW); GLUCOSE,URINE NEGATIVE (NEGATIVE); KETONES,URINE NEGATIVE (NEGATIVE); LEUKOCYTE ESTERASE,URINE NEGATIVE (NEGATIVE); NITRITE,URINE NEGATIVE (NEGATIVE); OCCULT BLOOD,URINE TRACE-LYSED (NEGATIVE); PROTEIN,URINE NEGATIVE (NEGATIVE)
[2023-08-31 13:33] LABS: BACTERIA,URINE NOT SEEN; EPITHELIAL CELLS,URINE NOT SEEN; MUCUS,URINE NOT SEEN; RBC,URINE 0-5 (0-5); WBC,URINE NOT SEEN (0-5)
[2023-08-31 13:34] LABS: AMORPHOUS SEDIMENT,URINE RARE
[2023-08-31 15:29] VITALS: BP 130/75; PULSE 58
== END 2023-08-31 15:30 | disposition home or self-care (01) ==
LOC: JP.ED 12:13
DX: I95.9 Hypotension, unspecified (principal); E86.0 Dehydration; Z79.899 Other long term (current) drug therapy; Z86.16 Personal history of COVID-19
CPT/HCPCS: 36415; 80053; 81001; 84484; 85025; 93005; 96360; 96361; 99284; J7030

== ENCOUNTER 2023-10-12 16:12 | Emergency (ER) | payer MEDICARE, BC ==
[2023-10-12 17:27] VITALS: BP 133/66; PULSE 55
== END 2023-10-12 18:43 | disposition home or self-care (01) ==
LOC: JP.ED 16:12
DX: S70.02XA Contusion of left hip, initial encounter (principal); Z79.01 Long term (current) use of anticoagulants; Z79.899 Other long term (current) drug therapy; Z86.16 Personal history of COVID-19; W19.XXXA Unspecified fall, initial encounter
CPT/HCPCS: 73502-LT; 99283

== ENCOUNTER 2023-10-17 09:35 | Emergency (ER) | payer MEDICARE, BC ==
[2023-10-17 11:12] VITALS: PULSE 52
[2023-10-17 11:13] LABS: BASOPHILS ABSOLUTE AUTO 0.03 K/uL (0.00-0.10); BASOPHILS PERCENT AUTO 0.5 % (0.1-1.3); EOSINOPHILS ABSOLUTE AUTO 0.12 K/uL (0.00-0.40); HEMATOCRIT 35.2 % (38.4-49.7); IMMATURE GRAN PERCENT AUTO 0.2 % (0.0-0.7); LYMPHOCYTES ABSOLUTE AUTO 1.28 K/uL (0.8-3.3); LYMPHOCYTES PERCENT AUTO 20.8 % (11.4-47.7); MEAN CORPUSCULAR HEMOGLOBIN 29.2 pg (31.6-35.5); MEAN CORPUSCULAR HGB CONC 34.1 g/dL (31.6-35.5); MEAN CORPUSCULAR VOLUME 85.6 fL (81.4-99.0); MONOCYTES ABSOLUTE AUTO 0.56 K/uL (0.20-0.90); MONOCYTES PERCENT AUTO 9.1 % (3.3-12.6); NEUTROPHILS ABSOLUTE AUTO 4.15 K/uL (1.0-7.6); NEUTROPHILS PERCENT AUTO 67.4 % (40.0-78.1); PLATELET COUNT,PLT 127 K/uL (130-375); RED BLOOD CELL COUNT 4.11 M/uL (4.14-5.76); WHITE BLOOD CELL COUNT,WBC 6.2 K/uL (3.2-11.0)
[2023-10-17 11:15] LABS: IMMATURE GRAN ABSOLUTE AUTO 0.01 K/uL (0.00-0.23)
[2023-10-17 11:28] LABS: ANION GAP 7.4 mmol/L (5.0-14.0); CALCIUM 8.7 mg/dL (8.5-10.1); CREATININE 0.9 mg/dL (0.8-1.3); EST CRCL DRUG DOSING (CG) 64.21 mL/min; POTASSIUM,K 4.1 mmol/L (3.6-5.2)
[2023-10-17 12:54] VITALS: BP 118/70
== END 2023-10-17 12:55 | disposition home or self-care (01) ==
LOC: JP.ED 09:35
DX: I95.1 Orthostatic hypotension (principal); Z86.16 Personal history of COVID-19; Z87.891 Personal history of nicotine dependence; Z79.899 Other long term (current) drug therapy
CPT/HCPCS: 36415; 80048; 85025; 99284

== ENCOUNTER 2023-10-30 20:56 | Emergency (ER) | payer MEDICARE, BC ==
[2023-10-30 21:44] VITALS: BP 107/68; PULSE 56
[2023-10-30 22:45] LABS: APPEARANCE,URINE CLEAR (CLEAR); BILIRUBIN,URINE NEGATIVE (NEGATIVE); COLOR,URINE YELLOW (YELLOW); GLUCOSE,URINE NEGATIVE (NEGATIVE); KETONES,URINE NEGATIVE (NEGATIVE); LEUKOCYTE ESTERASE,URINE NEGATIVE (NEGATIVE); NITRITE,URINE NEGATIVE (NEGATIVE); OCCULT BLOOD,URINE TRACE-INTACT (NEGATIVE); PH,URINE 5.5 (5.0-8.0); PROTEIN,URINE NEGATIVE (NEGATIVE)
[2023-10-30 22:54] LABS: AMORPHOUS SEDIMENT,URINE NOT SEEN; BACTERIA,URINE RARE; EPITHELIAL CELLS,URINE RARE; MUCUS,URINE NOT SEEN; RBC,URINE 0-5 (0-5); WBC,URINE 0-5 (0-5)
== END 2023-10-30 23:31 | disposition home or self-care (01) ==
LOC: JP.ED 20:56
DX: H55.00 Unspecified nystagmus (principal); Z86.16 Personal history of COVID-19; Z79.01 Long term (current) use of anticoagulants; Z79.899 Other long term (current) drug therapy
CPT/HCPCS: 81001; 99284

== ENCOUNTER 2024-04-23 11:52 | Emergency (ER) | payer MEDICARE, BC ==
[2024-04-23] MEDS: Ondansetron 4 MG/2 ML SDV IVPUSH ONE (13:28)
[2024-04-23 13:30] LABS: BASOPHILS PERCENT AUTO 0.1 % (0.1-1.3); EOSINOPHILS PERCENT AUTO 0.1 % (0.0-5.4); HEMATOCRIT 41.2 % (38.4-49.7); HEMOGLOBIN 14.1 g/dL (12.9-16.9); IMMATURE GRAN PERCENT AUTO 0.3 % (0.0-0.7); LYMPHOCYTES ABSOLUTE AUTO 0.58 K/uL (0.8-3.3); LYMPHOCYTES PERCENT AUTO 8.5 % (11.4-47.7); MEAN CORPUSCULAR HEMOGLOBIN 29.1 pg (31.6-35.5); MEAN CORPUSCULAR HGB CONC 34.2 g/dL (31.6-35.5); MEAN CORPUSCULAR VOLUME 84.9 fL (81.4-99.0); MONOCYTES ABSOLUTE AUTO 0.19 K/uL (0.20-0.90); MONOCYTES PERCENT AUTO 2.8 % (3.3-12.6); NEUTROPHILS ABSOLUTE AUTO 6.03 K/uL (1.0-7.6); NEUTROPHILS PERCENT AUTO 88.2 % (40.0-78.1); PLATELET COUNT,PLT 143 K/uL (130-375); RED BLOOD CELL COUNT 4.85 M/uL (4.14-5.76); WHITE BLOOD CELL COUNT,WBC 6.8 K/uL (3.2-11.0)
[2024-04-23] MEDS: Sodium Chloride 0.9% 1,000 ML IV ONE (13:31)
[2024-04-23 13:33] LABS: BASOPHILS ABSOLUTE AUTO 0.01 K/uL (0.00-0.10); EOSINOPHILS ABSOLUTE AUTO 0.01 K/uL (0.00-0.40); IMMATURE GRAN ABSOLUTE AUTO 0.02 K/uL (0.00-0.23)
[2024-04-23 13:52] LABS: A/G RATIO 1.1 (1.2-2.2); ALANINE AMINOTRANSFERASE,ALT 28 U/L (12-78); ALBUMIN 3.9 g/dL (3.4-5.0); ALKALINE PHOSPHATASE 83 U/L (46-116); ASPARTATE AMNIOTRANSFERASE,AST 23 U/L (15-37); BILIRUBIN TOTAL 1.5 mg/dL (0.2-1.0); BLOOD UREA NITROGEN,BUN 15 mg/dL (7-18); CARBON DIOXIDE,CO2 24 mmol/L (21-32); CHLORIDE,CL 105 mmol/L (100-108); CREATININE 0.9 mg/dL (0.8-1.3); EST CRCL DRUG DOSING (CG) 63.09 mL/min; ESTIMATED GFR 84 mL/min (>60); GLUCOSE RANDOM 115 mg/dL (74-106); PROTEIN TOTAL,TP 7.5 g/dL (6.4-8.2); SODIUM,NA 141 mmol/L (140-148)
[2024-04-23 14:22] LABS: APPEARANCE,URINE SLIGHTLY CLOUDY (CLEAR); BILIRUBIN,URINE NEGATIVE (NEGATIVE); COLOR,URINE YELLOW (YELLOW); GLUCOSE,URINE NEGATIVE (NEGATIVE); KETONES,URINE TRACE mg/dL (NEGATIVE); LEUKOCYTE ESTERASE,URINE NEGATIVE (NEGATIVE); NITRITE,URINE NEGATIVE (NEGATIVE); OCCULT BLOOD,URINE NEGATIVE (NEGATIVE); PROTEIN,URINE TRACE mg/dL (NEGATIVE); UROBILINOGEN,URINE 0.2 EU/dL (0.2-1.0)
[2024-04-23 14:38] LABS: AMORPHOUS SEDIMENT,URINE FEW; BACTERIA,URINE RARE; EPITHELIAL CELLS,URINE RARE; MUCUS,URINE RARE; RBC,URINE 0-5 (0-5); WBC,URINE 0-5 (0-5)
[2024-04-23 14:58] LABS: CORONAVIRUS COVID-19 NAA NEGATIVE (NEGATIVE); INFLUENZA A NAA NEGATIVE (NEGATIVE); INFLUENZA B NAA NEGATIVE (NEGATIVE); RESPIRATORY SYNCYTIAL VIR NAA NEGATIVE (NEGATIVE)
[2024-04-23 16:40] VITALS: BP 147/91; PULSE 91
== END 2024-04-23 16:10 | disposition home or self-care (01) ==
LOC: JP.ED 11:52
DX: R42 Dizziness and giddiness (principal); Z86.16 Personal history of COVID-19; Z95.2 Presence of prosthetic heart valve; Z79.01 Long term (current) use of anticoagulants; Z79.899 Other long term (current) drug therapy
CPT/HCPCS: 0241U; 36415; 70450; 71045; 80053; 81001; 85025; 86140; 93005; 96361; 96374; 99285; J2405; J7030